=== PATIENT | female | born 1945 | race Caucasian/White ===

== ENCOUNTER → 2023-11-20 09:45 | Outpatient (CLI) | payer MEDICARE, OTHER, SELFPAY | PROVIDERS: Referring Provider Student in an Organized Health Care Education/Training Program; Visit Provider Student in an Organized Health Care Education/Training Program | DX: R09.89 Other specified symptoms and signs involving the circulatory and respiratory systems (principal); R49.0 Dysphonia; R94.2 Abnormal results of pulmonary function studies | CPT/HCPCS: 94060; 94726; 94729 ==

== ENCOUNTER → 2023-12-26 09:44 | Outpatient (CLI) | payer MEDICARE, OTHER, SELFPAY ==
--- NOTE | 2023-12-26 09:46 | DI.US.S_ITS ---
PROCEDURE: US ARTERIAL DUPLEX LE BI INDICATIONS: PAIN IN LOWER LEG/HYPERLIPIDEMIA/ABNORMAL JOSE TECHNIQUE: Color and pulse Doppler interrogation was performed of both lower extremity arterial systems, with image documentation. COMPARISON: None. FINDINGS: Right lower extremity: Common femoral artery: 160 cm/sec, with triphasic flow. Deep femoral artery: 106 cm/sec, with triphasic flow. Proximal superficial femoral artery: 124 cm/sec, with triphasic flow. Mid superficial femoral artery: 142 cm/sec, with triphasic flow. Distal superficial femoral artery: 105 cm/sec, with triphasic flow. Popliteal artery: 96 cm/sec, with triphasic flow. Posterior tibial artery: 91 cm/sec, with triphasic flow. Anterior tibial artery/dorsalis pedis: 118 cm/sec, with triphasic flow. Díaz-scale imaging description: No significant stenosis involving right lower extremity arterial system. Left lower extremity: Common femoral artery: 132 cm/sec, with triphasic flow. Deep femoral artery: 98 cm/sec, with triphasic flow. Proximal superficial femoral artery: 147 cm/sec, with triphasic flow. Mid superficial femoral artery: 142 cm/sec, with triphasic flow. Distal superficial femoral artery: 113 cm/sec, with triphasic flow. Popliteal artery: 100 cm/sec, with triphasic flow. Posterior tibial artery: 119 cm/sec, with triphasic flow. Anterior tibial artery/dorsalis pedis: 107 cm/sec, with triphasic flow. Díaz-scale imaging description: No significant stenosis involving left lower extremity arterial system. IMPRESSION: No significant stenosis involving bilateral lower extremity arterial system. Dictated by: Yamil Avendaño M.D. on 12/26/2023 at 17:34 Approved by: Yamil Avendaño M.D. on 12/26/2023 at 17:36
== END ==
PROVIDERS: PCP Student in an Organized Health Care Education/Training Program; Referring Provider Student in an Organized Health Care Education/Training Program; Visit Provider Student in an Organized Health Care Education/Training Program
DX: M79.604 Pain in right leg (principal); E78.5 Hyperlipidemia, unspecified; R68.89 Other general symptoms and signs
CPT/HCPCS: 93925